=== PATIENT | male | born 1970 | race Caucasian/White ===

== ENCOUNTER 2022-03-14 08:42 | Emergency (ER) | payer MEDICAID ==
[~2022-03-14] VITALS: Ht 188 cm; Wt 91.0 kg
[2022-03-14] MEDS ORDERED: IBUPROFEN 600MG TABLET PO ONE (09:30)
[2022-03-14 09:44] VITALS: BP 166/101
[2022-03-14] MEDS ORDERED: IBUP-2029 MT (10:52)
== END 2022-03-14 10:52 | disposition home or self-care (01) ==
LOC: ER 08:42
DX: S93.491A Sprain of other ligament of right ankle, initial encounter (principal); W01.0XXA Fall on same level from slipping, tripping and stumbling without subsequent striking against object, initial encounter; Y93.89 Activity, other specified; Y92.9 Unspecified place or not applicable
CPT/HCPCS: 73610; 99283